=== PATIENT | male | born 2000 | race Caucasian/White ===

== ENCOUNTER 2021-12-19 08:00 | Outpatient (CLI) | payer OTHER ==
[2021-12-19 23:11] LABS: CHLAMYDIA TRACHOMATIS DNA NEGATIVE (NEGATIVE); NEISSERIA GONORRHOEAE DNA NEGATIVE (NEGATIVE)
[2021-12-20 03:08] LABS: RPR Non Reactive (Non Reactive)
[2021-12-20 04:08] LABS: HCV AB <0.1 s/co ratio (0.0-0.9); HEPATITIS B SURFACE AB QUANT 856.3 mIU/mL (Immunity>9.9); HIV SCREEN 4TH GENERATION Non Reactive (Non Reactive)
[2021-12-20 07:10] LABS: HSV 1 IGG TYPE SPEC <0.91 index (0.00-0.90); HSV 2 IGG TYPE SPEC <0.91 index (0.00-0.90)
[2021-12-20 21:08] LABS: HSV IGM I/II COMBINATION <0.91 Ratio (0.00-0.90)
== END 2021-12-19 23:59 | disposition home or self-care (01) ==
LOC: LAB.N 08:00
PROVIDERS: ATTEND Emergency Medicine
DX: Z11.3 Encounter for screening for infections with a predominantly sexual mode of transmission (principal)
CPT/HCPCS: 36415; 86317; 86592; 86695; 86696; 86803; 87389; 87491; 87591; 87661